=== PATIENT | male | born 1965 | race Caucasian/White ===

== ENCOUNTER 2016-04-26 08:55 | Emergency (ER) | payer OTHER ==
[2016-04-26] MEDS ORDERED: Sodium Chloride Irrig Solution 250 ML BOT ONE (09:00)
[2016-04-26] MEDS ORDERED: Naproxen 500 MG TAB ONE (09:26)
[2016-04-26] MEDS ORDERED: Cephalexin 500 MG CAP ONE (09:26)
[2016-04-26] MEDS ORDERED: HYDROcodone/Acetaminophen 10/325 mg Tablet ONE (09:26)
[2016-04-26] MEDS ORDERED: Adacel (T-DAP) 0.5 ML VIAL ONE (09:26)
[2016-04-26] MEDS ORDERED: Triple Antibiotic Oint 1 GM Packet ONE (09:56)
== END 2016-04-26 10:25 | disposition home or self-care (01) ==
LOC: MADERS 08:55
DX: T23.262A Burn of second degree of back of left hand, initial encounter (principal); F17.210 Nicotine dependence, cigarettes, uncomplicated
CPT/HCPCS: 90471; 90715

== ENCOUNTER 2023-08-03 12:40 | Emergency (ER) | payer BC ==
[2023-08-03] MEDS ORDERED: diphenhydrAMINE 50 MG/ML VIAL ONE (12:57)
[2023-08-03] MEDS ORDERED: methylPREDNISolone Sod Succ/PF 125 MG/2 ML VIAL ONE (12:57)
[2023-08-03] MEDS ORDERED: Famotidine/PF 20 mg/2ml Vial ONE (12:57)
[2023-08-03] MEDS ORDERED: Sodium Chloride 0.9% 1,000 ML ONE (12:57)
[2023-08-03] MEDS ORDERED: Ondansetron PF 4 MG/2 ML Vial ONE (13:03)
[2023-08-03 13:34] LABS: Anion Gap 19 mmol/L (10-20); BUN (Urea Nitrogen) 18 mg/dL (8.4-25.7); Calc. Creatinine Clearance 0 mL/min (70-130); Calcium 9.5 mg/dL (7.8-10.44); Carbon Dioxide 18 mmol/L (22-29); Chloride 108 mmol/L (98-107); Estimated GFR 70; Glucose 130 mg/dL (70-105); Sodium 141 mmol/L (136-145)
[2023-08-03 13:38] LABS: ALT (SGPT) 27 U/L (8-55); AST (SGOT) 28 U/L (5-34); Albumin 4.8 g/dL (3.5-5.0); Alkaline Phosphatase 69 U/L (40-110); Bilirubin, Direct 0.6 mg/dL (0.1-0.3); Bilirubin, Total 1.2 mg/dL (0.2-1.2); CK (CPK) 241 U/L (30-200); Lipase 24 U/L (8-78)
[2023-08-03 13:39] LABS: Band 1 % (5-11); Hematocrit 55.3 % (42.0-52.0); Hemoglobin 16.7 g/dL (14.0-18.0); Lymphocytes 10 % (21-51); MDiff Complete? YES; Mean Corpuscular HGB CONC 30.1 g/dL (32.0-36.0); Mean Corpuscular Hemoglobin 30.8 pg (27.0-31.0); Mean Corpuscular Volume 102.3 fl (78.0-98.0); Mean Platelet Volume 7.4 fL (7.4-10.4); Metamyelocyte 1 % (0-0); Monocytes 6 % (0-10); Neutrophil 80 % (42-75); Platelet Count 213 10x3/uL (130-400); RBC Distribution Width 11.8 % (11.5-14.5); Red Blood Cell (RBC) Count 5.41 mill/uL (4.70-6.10); Troponin I Less than 0.010 ng/mL (< 0.028); White Blood Cell (WBC) Count 17.1 10x3/uL (4.8-10.8)
[2023-08-03 13:40] LABS: Macrocytosis SLIGHT = 6-15 cells (100X) (0-5/hpf); Manual Diff?? YES; Platelet Adequacy Comment Appears Adequate; Reactive Lymphocytes 2 % (0-10)
[2023-08-03] MEDS ORDERED: cefTRIAXone (ROCEPHIN) 1 GM VIAL ONE (13:58)
== END 2023-08-03 14:23 | disposition home or self-care (01) ==
LOC: MADERS 12:40
DX: T63.441A Toxic effect of venom of bees, accidental (unintentional), initial encounter (principal); R11.2 Nausea with vomiting, unspecified; I10 Essential (primary) hypertension; F17.210 Nicotine dependence, cigarettes, uncomplicated; Z79.899 Other long term (current) drug therapy
CPT/HCPCS: 36415; 80048; 80076; 82550; 83690; 84484; 85025; 96361; 96365; 96375; J0696; J1200; J2405; J2930; J7050; S0028